=== PATIENT | male | born 1970 | race Caucasian/White ===

== ENCOUNTER 2019-05-24 09:19 | Emergency (ER) | payer OTHER ==
[2019-05-24] MEDS ORDERED: methylPREDNISolone Sod Succ/PF 125 MG/2 ML VIAL ONE (10:27)
== END 2019-05-24 10:39 | disposition home or self-care (01) ==
LOC: NAV ERS 09:19
DX: G95.20 Unspecified cord compression (principal)
CPT/HCPCS: 96372; 99283; J2930